=== PATIENT | male | born 1995 | race Caucasian/White ===

== ENCOUNTER 2022-08-01 11:00 | Outpatient (RCR) | payer OTHER ==
[~2022-08-01 11:00] MED LIST: FLEXERIL 1010 MG/TAB PO
== END 2022-08-21 ==
LOC: WSOH
DX: F07.81 Postconcussional syndrome (principal); M51.37 Other intervertebral disc degeneration, lumbosacral region; Y99.0 Civilian activity done for income or pay

== ENCOUNTER 2022-10-18 08:00 | Outpatient (RCR) | payer OTHER | END 2022-10-21 | disposition home or self-care (01) | LOC: PT.GENESIS | DX: F07.81 Postconcussional syndrome (principal) ==